=== PATIENT | female | born 1960 | race Caucasian/White ===

== ENCOUNTER 2021-02-24 13:34 | Emergency (ER) | payer OTHER, SELFPAY ==
[2021-02-24 13:50] VITALS: BP 141/85; PULSE 85; RESP 16; TEMP 37.3; O2SAT 98
--- NOTE | 2021-02-24 14:05 | ED.BACK ---
HPI - Back Pain/Injury General Stated Complaint: Tail bone injury Time Seen by Provider: 02/24/21 14:05 Source: patient Mode of arrival: ambulatory Limitations: no limitations History of Present Illness HPI Narrative: Alexa is a 61-year-old female patient ambulate into the [facility] care. Patient states she has pain in the right lumbar area. Patient states she was carrying laundry up and down stairs. Patient states it first occurred 2 weeks ago she did exercises and rest and it got better. Patient states it started again in the last few days. She has used ice, heat, and ibuprofen without relief. MD elicited complaint: back pain Related Data Allergies Allergy/AdvReac Type Severity Reaction Status Date / Time No Known Allergies Allergy Verified 02/24/21 14:14 Review of Systems Review of Systems: CONSTITUTIONAL: Denies body aches, fever, chills, or sweats. EYES: Denies visual changes, redness, or discharge. ENT: Denies rhinorrhea, congestion, sore throat, or otalgia. CARDIOVASCULAR: Denies chest pain, palpitations, or edema. RESPIRATORY: Denies cough or dyspnea. GASTROINTESTINAL: Denies abdominal pain, nausea, vomiting, or diarrhea. GENITOURINARY: Denies dysuria or hematuria. Denies change in bowel or bladder habits denies loss of control SKIN: Denies rash, itching, or wounds. MUSCULOSKELETAL: + right sided back pain denies joint pain, or myalgia. NEUROLOGIC: Denies headache, numbness, tingling, or weakness. PSYCH: Denies depression or anxiety. All systems reviewed & are unremarkable except as noted in HPI and below PMFSH Comments At time of signature, I have reviewed and agree with nursing past medical, surgical, social and family history unless otherwise noted. Please see nursing chart for further information. There is no relevant family history pertinent to the presenting complaint Exam Narrative: GENERAL: Well-appearing, well-nourished, and in no acute distress. HEAD: Normocephalic, atraumatic. EYES: EOMI. No redness or drainage. Conjunctivae normal. ENT: Mucous membranes pink and moist. Nares clear. No rhinorrhea. TMs normal bilaterally. NECK: Normal AROM. Supple. CHEST: No respiratory distress. ABDOMEN: Soft, nontender, nondistended, negative for CVA tenderness MUSCULOSKELETAL: No bony tenderness. No vertebral tenderness. Pain with palpation to the right lumbar area, neurovascular exam intact to bilateral lower extremities EXTREMITIES: Normal range of motion. No edema. SKIN: Warm, dry, no rash. Capillary refill normal. Normal skin turgor. NEURO: No focal deficits. Alert and oriented x3. Gait steady. PSYCH: Normal affect. No signs of depression or anxiety. Course Vital Signs Vital signs: Vital Signs Temperature 37.3 C 02/24/21 13:50 Pulse Rate 85 02/24/21 13:50 Respiratory Rate 16 02/24/21 13:50 Blood Pressure 141/85 H 02/24/21 13:50 Pulse Oximetry 98 02/24/21 13:50 Temperature 37.3 C 02/24/21 13:50 Pulse Rate 85 02/24/21 13:50 Respiratory Rate 16 02/24/21 13:50 Blood Pressure 141/85 H 02/24/21 13:50 Pulse Oximetry 98 02/24/21 13:50 MDM - Back Pain/Injury MDM Narrative Medical decision making narrative: Patient has a strain to the right lumbar area. Patient will be treated with [id number] ibuprofen, Flexeril, and prednisone. Patient to follow-up with her primary care physician in 7 to 10 days sooner for worsening or increase symptoms. Differential Diagnosis Differential diagnosis: Likely lumbar radiculopathy, sciatica, strain of lumbar region and discitis Medical Records Attestation: I reviewed the patient's medical records. Critical Care Time Critical Care Time Critical Care Time: No Discharge Plan Discharge Clinical Impression: Low back strain Qualifiers: Encounter type: initial encounter Qualified Code(s): S39.012A - Strain of muscle, fascia and tendon of lower back, initial encounter Patient Disposition: Home, Self-Care Conditi
== END 2021-02-24 14:16 | disposition home or self-care (01) ==
PROVIDERS: Emergency Provider Nurse Practitioner Family
DX: S39.012A Strain of muscle, fascia and tendon of lower back, initial encounter (principal); X58.XXXA Exposure to other specified factors, initial encounter
CPT/HCPCS: 99213; G0463

== ENCOUNTER 2024-11-03 15:35 | Emergency (ER) | payer OTHER, SELFPAY ==
--- NOTE | 2024-11-03 15:37 | ED_ITS ---
HPI - Skin/Abscess/Foreign Bdy General Chief complaint: Skin/Abscess/Foreign Body Stated complaint: Rash Time Seen by Provider: 11/03/24 15:36 Source: patient Mode of arrival: ambulatory Limitations: no limitations History of Present Illness HPI narrative: Patient is a 64-year-old female who presents with rash to face. Patient started using new [employer] skin products 2 weeks ago and symptoms started 1 week ago. Also reports her lips feel dry. Patient has use chapstick and beef tallow. Denies any itching, pain or swelling. Related Data Home Medications ?Medication ?Instructions ?Recorded ?Confirmed ?Last Taken ?Type amlodipine 2.5 mg tablet mg 11/03/24 Unknown History lisinopril 20 tablet 11/03/24 Unknown His tory mg-hydrochlorothiazide 12.5 mg tablet tirzepatide (weight loss) 12.5 mg subcut 11/03/24 Unk nown History mg/0.5 mL subcutaneous pen injector (Zepbound) Allergies Allergy/AdvReac Type Severity Reaction Status Date / Time No Known Allergies Allergy Verified 11/03/24 15:35 Review of Systems 2 Review of Systems: All systems reviewed & are unremarkable except as noted in HPI and below Constitutional: Constitutional: Denies body ache(s), Denies chills, Denies fatigue, Denies fever(s), Denies headache(s), Denies malaise and Denies weakness Eyes: Eyes: Denies blurry vision, Denies irritation and Denies loss of vision ENT: Denies otalgia, Denies headache(s), Denies nasal discharge, Denies sinus pain and Denies sore throat Cardiovascular: Cardiovascular: Denies chest pain, Denies irregular heart rhythm and Denies dyspnea Respiratory: Respiratory: Denies dyspnea Gastrointestinal: Gastrointestinal: Denies abdominal pain, Denies melena, Denies hematochezia, Denies diarrhea, Denies nausea and Denies vomiting Musculoskeletal: Musculoskeletal: Denies back pain, Denies myalgias and Denies arthralgias Integumentary/Breasts: Skin/Breast: Denies pruritus and Reports rash Neurologic: Denies headache(s), Denies loss of vision and Denies weakness Psychiatric: Psychiatric: Reports no additional psychiatric complaints Endocrine: Endocrine: Denies fatigue PMFSH Comments At time of signature, agree with nursing past medical, surgical, social and family history. There is no relevant family history pertinent to the presenting complaint. Exam 2 Const: General: cooperative, healthy appearing, comfortable, no acute distress and well nourished Nutritional Appearance: well nourished O rientation/consciousness: patient oriented x3 Limitations: no limitations HENMT: Head: normal to inspection, normocephalic and atraumatic Ears: h earing grossly normal bilaterally and external ears normal Face/Nose/Sinus: N ormal external nose present, normal facial exam and face symmetric Face and sinus: normal facial exam and face symmetric Face images: 1. Erythemic flat rash 2. Erythema flat rash Mouth: Yes lip normal Eyes: General: appearance normal, both eyes and all related structures A lignment and Position: alignment normal and position normal Periorbital: p eriorbital findings normal Eyelids: eyelids normal Pupils: Equal, round and reactive pupils present EOM: EOMs intact bilaterally Neck: Neck: normal visual inspection, full ROM and supple Chest: Chest palpation & inspection: normal inspection of the chest Resp: Effort & Inspection: normal respiratory effort and able to speak in complete sentences Auscultation: clear to auscultation bilaterally Cardio: Rate: regular rate Rhythm: regular rhythm Heart sounds: S1 normal heart sound present and S2 normal heart sound present GI: Inspection: normal to inspection Skin: General skin exam: normal color and no rashes or lesions noted Neuro: General: patient oriented x3 and moves all extremities Cranial nerves: Yes Equal, round and reactive pupils present Speech: normal speech Gait exam (Neuro): Normal gait present Extrem: General: normal to inspection, full ROM and no edema Psych: Appearance: grossly normal and well kempt Mental Status: mental status grossly normal Speech and movement: Normal speech and movement present Affect: normal affect Attitude: cooperative Thought process: Normal thought process present Course Course Emergency Course: Patient is aware of diagnosis, understands and agrees to treatment plan. Anticipatory guidance given. Patient agrees to follow-up as directed and is aware of reasons to seek care at the emergency department. Portions of this record may have been created with voice recognition software Level of Care: Express Care Visit Vital Signs Vital signs: Reviewed MDM - Skin/Abscess/Foreign Bdy MDM Narrative Medical decision making narrative: Pt well hydrated appearing, in no respiratory distress, hemodynamically stable. Recommend supportive care. The patient is stable at time of discharge the clinical impression was discussed and the patient was given the opportunity to ask questions, which were addressed as completely as possible given the information available at present. Anticipatory guidance and return to care precautions were discussed and the importance of primary care follow-up was stressed and encouraged. The patient voiced understanding of the plan, indications to return, and the need for follow-up. Exam findings show no acute concerns or changes Patient is appropriate for outpatient treatment and follow-up. Differential Diagnosis Differential diagnosis: Likely abscess of skin or subcutaneous tissue, allergic reaction to drug, cellulitis, eczema and contact dermatitis Medical Records Attestation: I reviewed the patient's medical records. Discharge Plan Discharge Clinical Impression: Contact dermatitis Qualifiers: Contact dermatitis type: irritant Contact dermatitis trigger: cosmetics Q ualified Code(s): L24.3 - Irritant contact dermatitis due to cosmetics Patient Disposition: Home Condition: Stable Instructions: Contact Dermatitis (ED) Additional Instructions: The most important part of your care is follow up with brand executive if not improving. Take the steroids starting today or in the morning Avoid hot showers, Take cool showers. Wash the area with gentle soap and water only. Use Aquaphor on face twice a day Avoid scratching when possible to prevent worsening of the condition and disruption of the skin that could lead to bacterial infection To relieve itching, place a cool washcloth or some ice over the area that itches, rather than scratching Go to the ER if you have trouble breathing, become hoarse, or start wheezing, develop belly cramps, vomiting or feel dizzy. Patient Language: Vietnamese Prescriptions: New prednisone 20 mg tablet See Rx Instructions .ROUTE .COMPLEX Qty: 9 0RF Rx Instructions: 40 mg daily x3 days, 20 mg daily x3 days No Action lisinopril-hydrochlorothiazide 20-12.5 mg tablet amlodipine 2.5 mg tablet Zepbound 12.5 mg/0.5 mL pen injector SUBCUT Follow-up/Referrals: Fernie Escobar DO [Physician, Family Practice] - 3 Days Stand Alone Forms: Work/School Release IP Time of Disposition: 15:53
[2024-11-03 15:39] VITALS: BP 142/86; PULSE 86; RESP 16; TEMP 36.4; O2SAT 98
== END 2024-11-03 16:00 | disposition home or self-care (01) ==
PROVIDERS: Emergency Provider Nurse Practitioner Family
DX: L24.3 Irritant contact dermatitis due to cosmetics (principal); Z79.899 Other long term (current) drug therapy
CPT/HCPCS: 99213; G0463